=== PATIENT | male | born 1965 | race Caucasian/White ===

== ENCOUNTER 2019-02-12 06:07 | Day surgery (SDC) | payer BC ==
[2019-02-12] MEDS ORDERED: Lactated Ringers 1,000 ML IV SCH (06:30)
[2019-02-12] MEDS ORDERED: Lactated Ringers 1,000 ML IV ONE (06:55)
[2019-02-12] MEDS ORDERED: DIPRIVAN 200 MG/20 ML IV ONE (06:58)
[2019-02-12] MEDS ORDERED: Ketamine HCl 50 MG/ML ONE (06:59)
[2019-02-12 08:58] VITALS: BP 130/75; PULSE 72; O2SAT 98
--- NOTE | 2019-02-12 11:54 | OP ---
SURGERY DATE/TIME: 02/12/2019 0730 PREOPERATIVE DIAGNOSIS: Screening exam. POSTOPERATIVE DIAGNOSIS: Normal colon. PROCEDURE: Colonoscopy. SURGEON: Dr. Levy. ANESTHESIA: MAC. Medications given by anesthesia department. HISTORY: The patient is a 53 year-old white male who presents now for his first screening colonoscopy. He was appraised of the risks of the procedure including the risk of perforation, phlebitis, untoward reaction to medication, bleeding and missed lesions. The patient verbalized his understanding and desired to have the procedure performed. DESCRIPTION OF PROCEDURE: The patient was given the medications by the anesthesia department. He had continuous pulse oximetry, ECG monitoring, intermittent blood pressure monitoring and tidal CO2 monitoring during the examination. He was placed in the left lateral decubitus position. A digital rectal examination was performed and revealed normal anal sphincter tone and no masses and normal prostate. The flexible Olympus pediatric colonoscope was used to intubate the rectum. A view of the colon was developed sequentially to the cecum. Upon insertion and withdrawal, including a retroflex view in the rectum, no mucosal lesions were encountered. The scope was removed from the patient who tolerated the procedure well and was sent back to OP recovery in good condition. The prep was noted to be fair.
== END 2019-02-12 08:55 | disposition home or self-care (01) ==
LOC: SDC 06:07
PROVIDERS: ATTEND Family Medicine
DX: Z12.11 Encounter for screening for malignant neoplasm of colon (principal); I10 Essential (primary) hypertension; E78.5 Hyperlipidemia, unspecified; E11.9 Type 2 diabetes mellitus without complications; K21.9 Gastro-esophageal reflux disease without esophagitis; Z79.899 Other long term (current) drug therapy
CPT/HCPCS: 82962; G0121; J2704

== ENCOUNTER 2019-10-12 14:56 | Emergency (ER) | payer BC ==
[2019-10-12] MEDS ORDERED: BABY ASPIRIN 81 MG CHEW PO ONE (15:53)
--- NOTE | 2019-10-12 15:59 | ERPHSYRPT ---
- History of Present Illness Time Seen by Provider: 10/12/19 15:34 Source: patient Exam Limitations: no limitations Patient Subjective Stated Complaint: Pt states "I woke up and the right side of my chest started to hurt." Triage Nursing Assessment: Pt presented alert and oriented X 3, skin pwd Pt ambulates with an upright steady gait, able to speak in clear full sentences pt in no apparent respiratory distress. pt stated the pain increased when he moved. Physician History: 54 years old male with history of hypertension, diabetes mellitus, hyperlipidemia, anxiety presented in the ER with chief complaint of right lower chest/upper abdominal pain sudden onset when he woke up this morning with radiation to the back, moderate intensity, aggravated with movements, deep breathing and better with resting. Denies any associated shortness of breath or palpitations. No nausea or vomiting reported. Patient denies any substernal chest pain. Fever or chills reported. Denies any history of CAD or cardiac work-up in the past. Currently rates pain 1-2/. Timing/Duration: today, sudden, improved Severity: moderate Modifying Factors: Improves With: immobilization, movement Associated Symptoms: chest pain Allergies/Adverse Reactions: No Known Drug Allergies Allergy (Verified 02/12/19 06:34) Home Medications: Fenofibrate Nanocrystallized [Fenofibrate] 48 mg PO DAILY 02/06/19 [History] Pravastatin Sodium 40 mg PO DAILY 02/06/19 [History] Sertraline HCl 50 mg [Zoloft 50 mg Tablet] 100 mg PO DAILY 02/06/19 [History] Insulin Lispro [Humalog Kwikpen U-100] 100 unit SQ DAILY 02/12/19 [History] Empagliflozin/Metformin HCl [Synjardy Xr 10-1,000 mg Tablet] 10 - 1,000 mg PO TID 10/12/19 [History] Insulin Glargine/Lixisenatide [Soliqua 100 Unit-33 Mcg/ml Pen] 3 ml IM DAILY 10/12/19 [History] Lisinopril/Hydrochlorothiazide [Lisinopril-Hctz 20-25 mg Tab] 1 each PO BID 10/12/19 [History] Hx Tetanus, Diphtheria Vaccination/Date Given: Yes Hx Influenza Vaccination/Date Given: Yes Hx Pneumococcal Vaccination/Date Given: No Immunizations Up to Date: Yes Travel Risk - International Travel Have you traveled outside of the country in past 3 weeks: No - Coronavirus Screening Are you exhibiting any of the following symptoms?: No Close contact with a COVID-19 positive Pt in past 14-21 Days: No - Review of Systems Constitutional: No Symptoms Eyes: No Symptoms Ears, Nose, & Throat: No Symptoms Respiratory: No Symptoms Cardiac: Chest Pain Abdominal/Gastrointestinal: Abdominal Pain Genitourinary Symptoms: No Symptoms Musculoskeletal: No Symptoms Skin: No Symptoms Neurological: No Symptoms Psychological: No Symptoms Endocrine: No Symptoms Hematologic/Lymphatic: No Symptoms Immunological/Allergic: No Symptoms - Past Medical History Pertinent Past Medical History: Yes Neurological History: No Pertinent History ENT History: No Pertinent History Cardiac History: High Cholesterol, Hypertension Respiratory History: No Pertinent History, Other Endocrine Medical History: Diabetes Type II Musculoskeletal History: Osteoarthritis GI Medical History: No Pertinent History History: No Pertinent History Psycho-Social History: Depression Male Reproductive Disorders: No Pertinent History Other Medical History: Occassional smoker. Pt reports that he snores, but no sleep apnea. - Past Surgical History Past Surgical History: Yes Neuro Surgical History: No Pertinent History Cardiac: No Pertinent History Respiratory: No Pertinent History Gastrointestinal: Hernia Repair Genitourinary: No Pertinent History Musculoskeletal: Orthopedic Surgery Male Surgical History: No Pertinent History Other Surgical History: Hx of left hernai repair. Bilat carpap tunnel and L torn meniscus knee scope - Social History Smoking Status: Former smoker How long have you smoked: 37 Exposure to second hand smoke: Yes Drug Use: none Patient Lives Alone: No - Nursing Vital Signs Nursing Vital Signs: Initial Vital Signs Temperature 98.1 F 10/12/19 15:00 Pulse Rate 90 10/12/19 15:00 Respiratory Rate 20 10/12/19 15:00 Blood Pressure 144/83 10/12/19 15:00 O2 Sat by Pulse Oximetry 96 10/12/19 15:00 Pain Scale Pain Intensity 0 - Physical Exam General Appearance: no apparent distress, alert Eye Exam: PERRL/EOMI, eyes nml inspection Ears, Nose, Throat Exam: normal ENT inspection, pharynx normal Neck Exam: normal inspection Respiratory Exam: normal breath sounds, lungs clear, No chest tenderness Cardiovascular Exam: regular rate/rhythm, normal heart sounds Gastrointestinal/Abdomen Exam: soft, tenderness (Upper quadrant, questionable Robertson sign) Back Exam: normal inspection Extremity Exam: normal inspection, normal range of motion Neurologic Exam: alert, oriented x 3, cooperative Skin Exam: normal color, warm SpO2 Interpretation: normal SpO2: 96 O2 Delivery: Room Air - Course Nursing assessment & vital signs reviewed: Yes EKG Interpreted by Me: RATE (91), Sinus Rhythm, NORMAL AXIS, NORMAL INTERVALS, NORMAL QRS, Other (PACs) Ordered Tests: Active Orders 24 hr Category Date Time Status EKG-ER Only STAT Care 10/12/19 15:51 Active IV Insertion STAT Care 10/12/19 15:51 Active NPO (ED) STAT Care 10/12/19 15:51 Active CHEST 1 VIEW (PORTABLE) Stat Exams 10/12/19 15:53 Completed GALLBLADDER [US] Stat Exams 10/12/19 15:53 Completed AMYLASE Stat Lab 10/12/19 15:11 Completed CBC W DIFF Stat Lab 10/12/19 15:11 Completed CMP Stat Lab 10/12/19 15:11 Completed D-DIMER QUANTITATIVE Stat Lab 10/12/19 18:24 Completed LIPASE Stat Lab 10/12/19 15:11 Completed TROPONIN Q3H Lab 10/12/19 15:11 Completed TROPONIN Q3H Lab 10/12/19 19:06 Completed TROPONIN Q3H Lab 10/12/19 22:00 Ordered TROPONIN Q3H Lab 10/13/19 01:00 Ordered TROPONIN Q3H Lab 10/13/19 04:00 Ordered UA W/RFX UR CULTURE Stat Lab 10/12/19 16:40 Completed Medication Summary Discontinued Medications Generic Name Dose Route Start Last Admin Trade Name Freq PRN Reason Stop Dose Admin Aspirin 324 mg 10/12/19 15:53 10/12/19 16:03 Baby Aspirin 81 Mg Chew PO 10/12/19 15:54 324 mg STAT ONE Administration Aspirin Confirm 10/12/19 16:01 Baby Aspirin 81 Mg Chew Administered 10/12/19 16:02 Dose 324 mg .ROUTE .STK-MED ONE Lab/Rad Data: Laboratory Result Diagrams 10/12/19 15:11 10/12/19 15:11 Laboratory Results 10/12/19 10/12/19 10/12/19 Range/Units 19:06 18:24 16:40 WBC (4.0-10.5) K/mm3 RBC (4.1-5.6) M/mm3 Hgb (12.5-18.0) gm/dl Hct (42-50) % MCV (78-100) fl MCH (26-32) pg MCHC (32-36) g/dl RDW (11.5-14.0) % Plt Count (150-450) K/mm3 MPV (7.5-11.0) fl Gran % (36.0-66.0) % Eos # (Auto) (0-0.5) Absolute Lymphs (auto) (1.0-4.6) Absolute Monos (auto) (0.0-1.3) Lymphocytes % (24.0-44.0) % Monocytes % (0.0-12.0) % Eosinophils % (0.00-5.0) % Basophils % (0.0-0.4) % Absolute Granulocytes (1.4-6.9) Basophils # (0-0.4) D-Dimer 222 (215-500) ng/mL Sodium (137-145) mmol/L Potassium (3.5-5.1) mmol/L Chloride (98-107) mmol/L Carbon Dioxide (22-30) mmol/L Anion Gap (5-15) MEQ/L BUN (9-20) mg/dL Creatinine (0.66-1.25) mg/dL Estimated GFR ML/MIN Glucose (74-106) mg/dL Calcium (8.4-10.2) mg/dL Total Bilirubin (0.2-1.3) mg/dL AST (17-59) U/L ALT (0-50) U/L Alkaline Phosphatase (38-126) U/L Troponin I < 0.012 (0.000-0.034) ng/mL Serum Total Protein (6.3-8.2) g/dL Albumin (3.5-5.0) g/dL Amylase (30-110) U/L Lipase (23-300) U/L Urine Color STRAW (YELLOW) Urine Appearance CLEAR (CLEAR) Urine pH 6.0 (5-6) Ur Specific [place] 1.025 (1.005-1.025) Urine Protein NEGATIVE (Negative) Urine Ketones NEGATIVE (NEGATIVE) Urine Blood NEGATIVE (0-5) Gonzalo/ul Urine Nitrite NEGATIVE (NEGATIVE) Urine Bilirubin NEGATIVE (NEGATIVE) Urine Urobilinogen NEGATIVE (0-1) mg/dL Ur Leukocyte Esterase NEGATIVE (NEGATIVE) Urine WBC (Auto) 3-5 (0-5) /HPF Urine RBC (Auto) 0-2 (0-2) /HPF U Epithel Cells (Auto) NONE (FEW) /HPF Urine Bacteria (Auto) NONE SEEN (NEGATIVE) /HPF Urine Culture Reflexed NO (NO) Urine Glucose >=500 (NEGATIVE) mg/dL 10/12/19 10/12/19 10/12/19 Range/Units 15:11 15:11 15:11 WBC 6.5 (4.0-10.5) K/mm3 RBC 5.05 (4.1-5.6) M/mm3 Hgb 15.5 (12.5-18.0) gm/dl Hct 45.2 (42-50) % MCV 89.5 (78-100) fl MCH 30.7 (26-32) pg MCHC 34.3 (32-36) g/dl RDW 13.2 (11.5-14.0) % Plt Count 230 (150-450) K/mm3 MPV 9.9 (7.5-11.0) fl Gran % 51.1 (36.0-66.0) % Eos # (Auto) 0.16 (0-0.5) Absolute Lymphs (auto) 2.53 (1.0-4.6) Absolute Monos (auto) 0.48 (0.0-1.3) Lymphocytes % 38.7 (24.0-44.0) % Monocytes % 7.4 (0.0-12.0) % Eosinophils % 2.5 (0.00-5.0) % Basophils % 0.3 (0.0-0.4) % Absolute Granulocytes 3.34 (1.4-6.9) Basophils # 0.02 (0-0.4) D-Dimer (215-500) ng/mL Sodium 135 L (137-145) mmol/L Potassium 4.0 (3.5-5.1) mmol/L Chloride 99 (98-107) mmol/L Carbon Dioxide 22 (22-30) mmol/L Anion Gap 17.9 H (5-15) MEQ/L BUN 26 H (9-20) mg/dL Creatinine 0.92 (0.66-1.25) mg/dL Estimated GFR > 60.0 ML/MIN Glucose 377 H (74-106) mg/dL Calcium 9.3 (8.4-10.2) mg/dL Total Bilirubin 0.60 (0.2-1.3) mg/dL AST 27 (17-59) U/L ALT 23 (0-50) U/L Alkaline Phosphatase 85 (38-126) U/L Troponin I < 0.012 (0.000-0.034) ng/mL Serum Total Protein 7.1 (6.3-8.2) g/dL Albumin 4.5 (3.5-5.0) g/dL Amylase 109 (30-110) U/L Lipase 165 (23-300) U/L Urine Color (YELLOW) Urine Appearance (CLEAR) Urine pH (5-6) Ur Specific Che[place] (1.005-1.025) Urine Protein (Negative) Urine Ketones (NEGATIVE) Urine Blood (0-5) Gonzalo/ul Urine Nitrite (NEGATIVE) Urine Bilirubin (NEGATIVE) Urine Urobilinogen (0-1) mg/dL Ur Leukocyte Esterase (NEGATIVE) Urine WBC (Auto) (0-5) /HPF Urine RBC (Auto) (0-2) /HPF U Epithel Cells (Auto) (FEW) /HPF Urine Bacteria (Auto) (NEGATIVE) /HPF Urine Culture Reflexed (NO) Urine Glucose (NEGATIVE) mg/dL - Progress Progress: improved, re-examined Progress Note: 10/12/19 19:41 54 years old is evaluated for right lower chest pain with radiation to the back. I have offered him pain medication which he refused. EKG did not show any acute ischemic changes. Negative troponins x2. Negative D-dimers. Chest x-ray did not show any acute cardiopulmonary findings. Patient has some tenderness in the right upper quadrant and I have obtained ultrasound which is negative for acute Adela cystitis/cholelithiasis. Patient's pain is minimal on reevaluation. Patient blood sugar was elevated, reports he missed the dose of insulin, advised to monitor it regularly and be compliant with medications. Do not think patient needs any further work-up in the ER but needs outpatient follow-up with cardiology for further evaluation. Discussed signs symptoms of worsening needing return to ER which he seems understanding. Stable for discharge. Counseled pt/family regarding: lab results, diagnosis, need for follow-up, rad results - Departure Departure Disposition: Home Clinical Impression: Atypical chest pain, Hyperglycemia Condition: Stable Critical Care Time: No Referrals: ZUNILDA CORRAL [Primary Care Provider] - Follow Up with PCP/3 days ARLEEN HENDERSON [ACTIVE STAFF] - Follow Up with PCP/3 days (Call for appointment) Instructions: Angina (DC), Chest Pain (DC) Additional Instructions: Follow-up with your primary care and windows laptop technician for reevaluation. Monitor your blood sugar regularly, keep a log and take to your primary care. Return to ER for worsening chest pain palpitations shortness of breath etc.
[2019-10-12] MEDS ORDERED: BABY ASPIRIN 81 MG CHEW ONE (16:01)
[2019-10-12 16:10] LABS: Absolute Neutrophil Ct (ANC) 3.34 (1.4-6.9); BASOPHIL % 0.3 % (0.0-0.4); Basophil (Absolute #) 0.02 (0-0.4); Eosinophil % 2.5 % (0.00-5.0); Eosinophil (Absolute #) 0.16 (0-0.5); Hematocrit 45.2 % (42-50); Hemoglobin 15.5 gm/dl (12.5-18.0); Lymphocyte (Absolute #) 2.53 (1.0-4.6); Lymphocytes % 38.7 % (24.0-44.0); Mean Cell Volume 89.5 fl (78-100); Mean Corpuscular Hemoglobin 30.7 pg (26-32); Mean Corpuscular Hgb Concent. 34.3 g/dl (32-36); Mean Platelet Volume 9.9 fl (7.5-11.0); Monocyte (Absolute #) 0.48 (0.0-1.3); Monocytes % 7.4 % (0.0-12.0); Neutrophil % 51.1 % (36.0-66.0); Platelet Count 230 K/mm3 (150-450); Red Blood Count 5.05 M/mm3 (4.1-5.6); Red Cell Distribution Width 13.2 % (11.5-14.0); White Blood Count 6.5 K/mm3 (4.0-10.5)
--- NOTE | 2019-10-12 16:18 | XRAY ---
Exam: AP upright portable chest film from 10/12/2019. Comparison: None. Indication: 54-year-old male with lower right-sided chest pain. Findings: The transverse heart size appears within normal limits for this AP portable technique. The jesse and mediastinal structures appear unremarkable. The lungs are mildly hypoinflated, but are free of infiltrates, vascular congestion, pneumothorax, or pleural fluid. Mild lateral osteophyte formation is seen within the lower thoracic spine. There is slight convexity of the upper thoracic spine toward the right centered at T4-T5. No acute osseous process is seen. Impression: 1. Mildly hypoinflated chest revealing no acute cardiopulmonary disease.
[2019-10-12 16:23] LABS: ALBUMIN 4.5 g/dL (3.5-5.0); ALKALINE PHOSPHATASE 85 U/L (38-126); AMYLASE 109 U/L (30-110); ANION GAP 17.9 MEQ/L (5-15); BLOOD UREA NITROGEN 26 mg/dL (9-20); CHLORIDE 99 mmol/L (98-107); Calcium 9.3 mg/dL (8.4-10.2); Carbon Dioxide 22 mmol/L (22-30); Creatinine 1 0.92 mg/dL (0.66-1.25); Glucose 377 mg/dL (74-106); LIPASE 165 U/L (23-300); SGOT/AST 27 U/L (17-59); SGPT/ALT 23 U/L (0-50); SODIUM 135 mmol/L (137-145); Total Protein 7.1 g/dL (6.3-8.2)
[2019-10-12 16:48] LABS: Appearance CLEAR (CLEAR); Bilirubin NEGATIVE (NEGATIVE); Blood NEGATIVE Ery/ul (0-5); Glucose >=500 mg/dL (NEGATIVE); Ketones NEGATIVE (NEGATIVE); Leukocyte Esterase NEGATIVE (NEGATIVE); Nitrite NEGATIVE (NEGATIVE); Protein,Urine Dip NEGATIVE (Negative); Specific Gravity 1.025 (1.005-1.025); Urobilinogen NEGATIVE mg/dL (0-1)
[2019-10-12 16:57] LABS: Bacteria NONE SEEN /HPF (NEGATIVE); RBC 0-2 /HPF (0-2)
--- NOTE | 2019-10-12 17:11 | XRAY ---
Exam: Gallbladder ultrasound from 10/12/2019. Comparison: None. Indication: Right upper quadrant abdominal pain, rule out acute cholecystitis. Findings: The gallbladder is adequately distended and reveals no intraluminal gallstones or biliary sludge. Maximum gallbladder wall thickness is 2.3 mm. No pericholecystic edema or fluid is seen. The proximal common bile duct measures 3.5 mm which is normal. No intrahepatic biliary duct distention is seen. The liver does not appear enlarged. Normal blood flow is seen within the main portal vein toward the liver. No definite focal hepatic mass is seen. I see no perihepatic ascites. The pancreas is not well seen due to overlying bowel gas. The right kidney measures 13.7 cm x 4.9 cm x 5.6 cm and reveals no mass, hydronephrosis, or dominant stone. Impression: 1. The gallbladder ultrasound appears unremarkable. Specifically, no intraluminal gallstones or biliary sludge is seen. No gallbladder wall thickening, pericholecystic edema or fluid, or biliary duct distention is seen. The imaging technologist made no comment on whether or not there was a sonographic Robertson's sign. 2. No other significant abnormality is seen within the right upper quadrant.
[2019-10-12 19:57] VITALS: BP 144/74; PULSE 80; O2SAT 98
== END 2019-10-12 19:56 | disposition home or self-care (01) ==
LOC: ED 14:56
DX: R07.89 Other chest pain (principal); I10 Essential (primary) hypertension; E78.00 Pure hypercholesterolemia, unspecified
CPT/HCPCS: 36000; 36415; 71045; 76705; 80053; 81001; 82150; 83690; 84484; 85025; 85379; 93005; 99284; A9270-GY